=== PATIENT | male | born 1965 | race Caucasian/White ===

== ENCOUNTER → 2018-03-13 | Outpatient (CLI) | payer OTHER ==
[~2018-03-13] MED LIST: BUPRENORPHINE HC8 MG PO; EZET10-40 PO; HYDACE10B PO; HYDACE5 PO; HYDACE5325 PO; IBUPROFEN PM S1 EACH PO; LOVA40 PO; OXYACE5T PO; PROM25 PO; RXPROM25 PO; SUMA25 PO; TAMS.4ER PO
[2018-03-13 11:05] LABS: Appearance, Synovial Fluid Bloody (Clear); Color, Synovial Fluid Red (None-P Yel)
[2018-03-13 11:06] LABS: BASOPHILS ABSOLUTE AUTO 0.07 K/mm3 (0.00-0.23); BASOPHILS PERCENT AUTO 1 % (0-2); EOSINOPHILS ABSOLUTE AUTO 0.13 K/mm3 (0.00-0.68); EOSINOPHILS PERCENT AUTO 1 % (0-6); Hematocrit 42.9 % (37.0-53.0); Hemoglobin 14.8 g/dL (13.5-17.5); IMMATURE GRAN ABSOLUTE AUTO 0.18 K/mm3 (0.00-0.10); IMMATURE GRAN PERCENT AUTO 2 % (0-1); LYMPHOCYTES ABSOLUTE AUTO 2.24 K/mm3 (0.84-5.20); LYMPHOCYTES PERCENT AUTO 19 % (21-46); MONOCYTES ABSOLUTE AUTO 1.07 K/mm3 (0.16-1.47); MONOCYTES PERCENT AUTO 9 % (4-13); Mean Corpuscular HGB 34.5 pg (26.0-34.0); Mean Corpuscular HGB Conc 34.5 g/dL (31.5-36.5); Mean Corpuscular Volume 100 fL (80-100); Mean Platelet Volume 10.3 fL (9.1-12.4); NEUTROPHILS ABSOLUTE AUTO 7.83 K/mm3 (1.96-9.15); NEUTROPHILS PERCENT AUTO 68 % (41-73); Platelet Count 217 K/mm3 (150-400); RDW Coefficient Variation 12.7 % (11.7-14.2); RDW Standard Deviation 46.9 fL (35.1-46.3); Red Blood Cell Count 4.29 M/mm3 (4.30-5.90); White Blood Cell Count 11.52 K/mm3 (4.00-11.30)
[2018-03-13 11:25] LABS: Body Fluid Crystals NEG (NEGATIVE)
[2018-03-13 12:16] LABS: Eos, Synovial Fluid 1 % (0-2); Lymphs, Synovial Fluid 16 % (0-15); Monocytes/Macrophages, Synovia 4 % (0-65); Neutrophils, Synovial Fluid 79 % (0-24)
[2018-03-13 12:17] LABS: Crystals, Synovial Fluid Not Seen (Not Seen)
== END ==
LOC: LAB SHORT 10:40 → LAB 10:40
PROVIDERS: Nurse Practitioner
DX: L53.9 Erythematous condition, unspecified (principal); R60.9 Edema, unspecified
CPT/HCPCS: 85025; 85651; 86140; 87070; 87075; 87205; 89051; 89060

== ENCOUNTER 2018-09-18 19:19 | Emergency (ER) | payer OTHER ==
[~2018-09-18] VITALS: Ht 167.6 cm; Wt 93.0 kg
== END 2018-09-18 21:48 | disposition home or self-care (01) ==
LOC: ER 19:19
DX: G43.909 Migraine, unspecified, not intractable, without status migrainosus (principal)
CPT/HCPCS: 99283